=== PATIENT | female | born 1955 | race Caucasian/White ===

== ENCOUNTER 2018-03-15 05:27 | Day surgery (SDC) | payer OTHER, MEDICAID ==
[2018-03-15] MEDS ORDERED: LACTATED RINGER'S 1,000 ML IV (06:30)
[2018-03-15] MEDS ORDERED: CEFAZOLIN 1 GM INJ (07:00)
[2018-03-15] MEDS ORDERED: EPHEDrine SULFATE 50 MG/5 ML SYG IV (07:30)
[2018-03-15] MEDS ORDERED: TRIMETHOBENZAMIDE 100 MG/ML VIAL IM (07:30)
[2018-03-15] MEDS ORDERED: FENTAnyl 50 MCG/ML VIAL IV ×3 (07:30)
[2018-03-15] MEDS ORDERED: MIDAZOLAM 1 MG/ML 2 ML INJ IV (07:30)
[2018-03-15] MEDS ORDERED: HYDROmorphONE 1 MG/5 ML IV SYRINGE IV ×3 (07:30)
[2018-03-15] MEDS ORDERED: IPRATROPIUM (NEB) 0.5 MG/2.5 ML AMP HHN (07:30)
[2018-03-15] MEDS ORDERED: ALBUTEROL 0.083% (NEB) 2.5 MG/3 ML AMP HHN (07:30)
[2018-03-15] MEDS ORDERED: OXYCODONE/ACETAMINOPHEN (5/325) TAB PO ×2 (07:30)
[2018-03-15] MEDS ORDERED: ONDANSETRON 4 MG INJ IV (07:30)
[2018-03-15] MEDS ORDERED: LABETALOL HCL 20MG INJ IV (07:30)
[2018-03-15] MEDS ORDERED: MEPERIDINE 25 MG INJ IV (07:30)
[2018-03-15] MEDS ORDERED: hydrALAzine 20 MG INJ IV (07:30)
[2018-03-15] MEDS ORDERED: DIPHENHYDRAMINE 50 MG INJ IV (07:30)
[2018-03-15] MEDS ORDERED: LIDOCAINE 100 MG SYRINGE (07:32)
[2018-03-15] MEDS ORDERED: PROPOFOL 20 ML (07:32)
[2018-03-15] MEDS ORDERED: FENTAnyl 50 MCG/ML VIAL (07:32)
[2018-03-15] MEDS ORDERED: ONDANSETRON 4 MG INJ (07:32)
[2018-03-15] MEDS ORDERED: LABETALOL HCL 20MG INJ (07:38)
[2018-03-15] MEDS ORDERED: MIDAZOLAM 1 MG/ML 2 ML INJ (07:54)
[2018-03-15] MEDS: BUPIVACAINE 0.5% (SDV) 30 ML INJ (08:04)
[2018-03-15] MEDS: LIDOCAINE 2% (MDV) 20 ML INJ (08:05)
[2018-03-15] MEDS: DEXAMETHASONE 4 MG/ML 1 ML INJ ×2 (08:05)
[2018-03-15] MEDS: POLYMYXIN/BACITRACIN 1L IRRIG (08:06)
== END 2018-03-15 09:12 | disposition home or self-care (01) ==
LOC: SDS 05:27
DX: D18.01 Hemangioma of skin and subcutaneous tissue (principal); I10 Essential (primary) hypertension; E11.9 Type 2 diabetes mellitus without complications
CPT/HCPCS: 28043; 71045; 82962; 88307; 93005